=== PATIENT | female | born 1960 | race Caucasian/White ===

== ENCOUNTER 2017-11-28 10:17 | Emergency (ER) | payer BC ==
[2017-11-28] MEDS ORDERED: METHYLPREDNISOLONE 125 MG INJ ONE (11:07)
[2017-11-28] MEDS ORDERED: LEVALBUTEROL 1.25 MG/3 ML NEB ONE (11:09)
[2017-11-28 11:48] LABS: Protime INR 1.13
[2017-11-28 11:49] LABS: Absolute Lymphocytes (CBC) 1.5 K/uL (0.7-4.9); Absolute Monocytes 0.8 K/uL (0.1-1.3); Basophils % 0.9 % (0-1.3); Eosinophils % 0.3 % (0-4.4); Hematocrit 42.2 % (36.0-45.0); Lymphocytes % 10.6 % (15.3-44.8); MCH 29.8 pg (27.0-35.0); MCV 90.3 fL (80-100); MPV 8.3 fL (7.6-11.3); Monocytes % 5.5 % (3.3-12.3); RBC Red Blood Cell Count 4.67 M/uL (3.86-4.86)
[2017-11-28 11:54] LABS: Potassium 3.8 mEq/L (3.6-5.0)
[2017-11-28 12:00] LABS: Albumin 4.2 g/dL (3.2-5.5); Bilirubin Direct 0.1 mg/dL (0-0.2); Bilirubin Total 0.7 mg/dL (0.3-1.2); Magnesium 2.3 mg/dL (1.8-2.5); Protein, Total 7.9 g/dL (6.0-8.3)
--- NOTE | 2017-11-28 12:14 | RAD REPORT ---
EXAM DESCRIPTION: Christine Single View11/28/2017 11:59 am CLINICAL HISTORY: Chest pain COMPARISON: November 25, 2017 FINDINGS: Left basilar opacities are without significant change. The right lung appears clear. The heart is normal size IMPRESSION: No change in left basilar opacities probably representing pneumonia. This should be foll owed until it is clear to help exclude a post obstructive process/underlying mass
[2017-11-28] MEDS ORDERED: levoFLOXacin 750 MG TAB ONE (13:02)
[2017-11-28] MEDS ORDERED: ACETAMINOPHEN 500 MG TAB ONE (13:02)
--- NOTE | 2017-11-28 13:41 | EDPHYS ---
Physician Documentation [facility] Name: Gabriella Luna Age: 57 yrs Sex: Female : 1960 Arrival Date: 11/28/2017 Time: 10:20 Bed 20 Private MD: Dread Pineda E ED Physician Shamar Padilla HPI: 11/28 13:36 This 57 yrs old Female presents to ER via Ambulatory with complaints of jr8 Asthma Exacerbation. 13:36 The patient presents to the emergency department with wheezing, Current therapy: jr8 albuterol inhaler. Onset: The symptoms/episode began/occurred gradually, 1 week(s) ago. Modifying factors: The symptoms are alleviated by nothing, the symptoms are aggravated by nothing. Associated signs and symptoms: Pertinent positives: chest pain. Severity of symptoms: At their worst the symptoms were moderate in the emergency department the symptoms are unchanged. The patient has not experienced similar symptoms in the past. The patient has been recently seen by a physician:. Patient had X-ray done a few days ago after stating she was having some left sided chest pain. For the past couple of days has had increased shortness of breath. Went to urgent care today and was referred to ED for suspected pneumonia . Historical: - Allergies: 10:32 Sulfa (Sulfonamide Antibiotics); hj 10:32 NSAIDS; hj 13:41 Levaquin; em - Home Meds: 10:32 vitamins [Active]; Ventolin Nebulizer [Active]; hj - PMHx: 10:32 Asthma; hj - PSHx: 10:32 Cholecystectomy; Appendectomy; Hernia repair; Knee surgery; hj - Immunization history:: Adult Immunizations up to date. - Social history:: Smoking status: . ROS: 13:36 Eyes: Negative for injury, pain, redness, and discharge, ENT: Negative for injury, jr8 pain, and discharge, Neck: Negative for injury, pain, and swelling, Cardiovascular: Negative for chest pain, palpitations, and edema, Abdomen/GI: Negative for abdominal pain, nausea, vomiting, diarrhea, and constipation, Back: Negative for injury and pain, MS/Extremity: Negative for injury and deformity, Skin: Negative for injury, rash, and discoloration, Neuro: Negative for headache, weakness, numbness, tingling, and seizure. 13:36 Respiratory: Positive for cough, shortness of breath, wheezing. Exam: 13:36 Eyes: Pupils equal round and reactive to light, extra-ocular motions intact. Lids and jr8 lashes normal. Conjunctiva and sclera are non-icteric and not injected. Cornea within normal limits. Periorbital areas with no swelling, redness, or edema. ENT: Nares patent. No nasal discharge, no septal abnormalities noted. Tympanic membranes are normal and external auditory canals are clear. Oropharynx with no redness, swelling, or masses, exudates, or evidence of obstruction, uvula midline. Mucous membranes moist. Neck: Trachea midline, no thyromegaly or masses palpated, and no cervical lymphadenopathy. Supple, full range of motion without nuchal rigidity, or vertebral point tenderness. No Meningismus. Cardiovascular: Regular rate and rhythm with a normal S1 and S2. No gallops, murmurs, or rubs. Normal PMI, no JVD. No pulse deficits. Abdomen/GI: Soft, non-tender, with normal bowel sounds. No distension or tympany. No guarding or rebound. No evidence of tenderness throughout. Back: No spinal tenderness. No costovertebral tenderness. Full range of motion. Skin: Warm, dry with normal turgor. Normal color with no rashes, no lesions, and no evidence of cellulitis. MS/ Extremity: Pulses equal, no cyanosis. Neurovascular intact. Full, normal range of motion. Neuro: Awake and alert, GCS 15, oriented to person, place, time, and situation. Cranial nerves II-XII grossly intact. Motor strength 5/5 in all extremities. Sensory grossly intact. Cerebellar exam normal. Normal gait. 13:36 Respiratory: the patient does not display signs of respiratory distress, Respirations: normal, symetrical, no use of accessory muscles, no grunting, no evidence of nasal flaring, no prolonged exhalations, no pursed lip breathing, no retractions, no shallow respirations, no splinting, no tachypnea, Breath sounds: wheezing: expiratory that is mild, is heard diffusely. Vital Signs: 10:32 BP 130 / 53; Pulse 95; Resp 20; Temp 98.2(O); Pulse Ox 99% on R/A; Weight 62.6 kg; hj Height 5 ft. 6 in. (167.64 cm); Pain 7/10; 11:48 BP 130 / 48; Pulse 72; Resp 18; Pulse Ox 95% on R/A; Pain 5/10; em 13:14 BP 129 / 53; Pulse 79; Resp 18; Pulse Ox 95% on R/A; Pain 7/10; em 13:50 BP 135 / 61; Pulse 85; Resp 16; Temp 98.3(O); Pulse Ox 95% on R/A; Pain 5/10; em 10:32 Body Mass Index 22.27 (62.60 kg, 167.64 cm) hj MDM: 10:56 Patient medically screened. 8 13:36 Data reviewed: vital signs, nurses notes, lab test result(s), EKG, radiologic studies, jr8 plain films, and as a result, I will discharge patient. Data interpreted: Pulse oximetry: on room air is 95 %. Interpretation: normal. Counseling: I had a detailed discussion with the patient and/or guardian regarding: the historical points, exam findings, and any diagnostic results supporting the discharge/admit diagnosis, lab results, radiology results, the need for outpatient follow up, a family practitioner, to return to the emergency department if symptoms worsen or persist or if there are any questions or concerns that arise at home. Response to treatment: the patient's symptoms have markedly improved after treatment. 11/28 11:04 Order name: Basic Metabolic Panel; Complete Time: 12:11/28 11:04 Order name: BNP; Complete Time: 12:11/28 11:04 Order name: CBC with Diff; Complete Time: 12:11/28 11:04 Order name: LFT's; Complete Time: 12:11/28 11:04 Order name: Magnesium; Complete Time: 12:11/28 11:04 Order name: PT-INR; Complete Time: 12:11/28 11:04 Order name: Troponin (emerg Dept Use Only); Complete Time: 12:11/28 11:04 Order name: XRAY Chest (1 view); Complete Time: 12:11/28 11:04 Order name: EKG; Complete Time: 11:11/28 11:04 Order name: Cardiac monitoring; Complete Time: 12:11/28 11:04 Order name: EKG - Nurse/Tech; Complete Time: 12:13 11/28 11:04 Order name: IV Saline Lock; Complete Time: 12:11/28 11:04 Order name: Labs collected and sent; Complete Time: 12:11/28 11:04 Order name: O2 Per Protocol; Complete Time: 12:14 11/28 11:04 Order name: O2 Sat Monitoring; Complete Time: 12:14 Administered Medications: 11:20 Drug: SOLU-Medrol 125 mg Route: IVP; Site: right wrist; sg 13:29 Follow up: Response: No adverse reaction em 11:20 Drug: Xopenex 1.25 mg Route: Inhalation; em 12:13 Follow up: Response: No adverse reaction em 13:10 Drug: LevaQUIN 750 mg Route: PO; em 13:29 Follow up: Response: No adverse reaction em 13:10 Drug: Tylenol 1000 mg Route: PO; em 13:30 Follow up: Response: No adverse reaction em Disposition: 17:22 Co-signature as Attending Physician, Shamar Padilla MD I agree with the assessment and kdr plan of care. Disposition: 11/28/17 13:41 Discharged to Home. Impression: Pneumonia due to other specified bacteria. - Condition is Stable. - Discharge Instructions: Pneumonia, Adult. - Prescriptions for Albuterol Sulfate 2.5 mg /3 mL (0.083 %) Inhalation Solution for Nebulization - inhale 1 unit by NEBULIZATION route every 8 hours As needed; 1 box. Zithromax Z- Barrie 250 mg Oral Tablet - take 1 tablet by ORAL route as directed for 5 days Day 1 - take two (2) tablets one time. Day 2, 3, 4 , 5 take one (1) tablet once daily.; 6 tablet. Albuterol Sulfate 90 mcg/actuation - inhale 1-2 puff by INHALATION route every 4-6 hours; 1 Inhaler. - Medication Reconciliation Form, Thank You Letter, Antibiotic Education, Prescription Opioid Use form. - Follow up: Dread Pineda MD; When: 2 - 3 days; Reason: Recheck today's complaints, Continuance of care, Re-evaluation by your physician. - Problem is new. - Symptoms have improved. Signatures: Dispatcher [employer] EDMitch Carl RN RN sg Rittger, Kevin, MD MD [facility] Mcgovern, Mamadou, CERTIFICATION ENGINEER CERTIFICATION ENGINEER em Ricardo Moffett PA PA jr8 Matheus Silva RN RN hj Corrections: (The following items were deleted from the chart) 14:01 11:04 Urine Dipstick-Ancillary ordered. rigo phipps
--- NOTE | 2017-11-28 13:41 | ER ---
Nurse's Notes [facility] Name: Gabriella Luna Age: 57 yrs Sex: Female : 1960 Arrival Date: 11/28/2017 Time: 10:20 Bed 20 Private MD: Dread Pineda E Diagnosis: Pneumonia due to other specified bacteria Presentation: 11/28 10:30 Presenting complaint: Patient states: hx of asthma, and my back and chest is hurting, hj and im coughing, i feel like my inhaler is not working; report chills; denies fever;. Transition of care: patient was not received from another setting of care. Onset of symptoms was November 28, 2017. Initial Sepsis Screen: Does the patient meet any 2 criteria? No. Patient's initial sepsis screen is negative. Does the patient have a suspected source of infection? No. Patient's initial sepsis screen is negative. Care prior to arrival: None. 10:30 Method Of Arrival: Ambulatory hj 10:30 Acuity: ASHLEY 3 hj Triage Assessment: 10:32 General: Appears in no apparent distress. uncomfortable, Behavior is calm, cooperative, hj appropriate for age. Pain: Complains of pain in back and chest. Historical: - Allergies: 10:32 Sulfa (Sulfonamide Antibiotics); hj 10:32 NSAIDS; hj 13:41 Levaquin; em - Home Meds: 10:32 vitamins [Active]; Ventolin Nebulizer [Active]; hj - PMHx: 10:32 Asthma; hj - PSHx: 10:32 Cholecystectomy; Appendectomy; Hernia repair; Knee surgery; hj - Immunization history:: Adult Immunizations up to date. - Social history:: Smoking status: . Screenin:42 Abuse screen: Denies threats or abuse. Nutritional screening: No deficits noted. em Tuberculosis screening: No symptoms or risk factors identified. Fall Risk None identified. Assessment: 11:00 General: Appears in no apparent distress. comfortable, Behavior is calm, cooperative. em Pain: Complains of pain in chest Pain radiates to back Pain currently is 7 out of 10 on a pain scale. Neuro: Level of Consciousness is awake, alert, obeys commands, Oriented to person, place, time, situation. Cardiovascular: Capillary refill < 3 seconds Patient's skin is warm and dry. Respiratory: Reports shortness of breath at rest pain with cough since 4 days Airway is patent Respiratory effort is even, unlabored, Respiratory pattern is regular, symmetrical, Breath sounds are diminished in left posterior upper lobe and left posterior lower lobe Onset: The symptoms/episode began/occurred 4 days ago. GI: Abdomen is flat. : No signs and/or symptoms were reported regarding the genitourinary system. EENT: No signs and/or symptoms were reported regarding the EENT system. Derm: Skin is intact, Skin is pink, warm \T\ dry. Musculoskeletal: Range of motion: intact in all extremities. 11:10 Reassessment: Patient appears in no apparent distress at this time. I agree with above iw assessment by Mamadou Mcgovern LVN. 12:07 Reassessment: Patient appears in no apparent distress at this time. Patient and/or em family updated on plan of care and expected duration. Pain level reassessed. Patient is alert, oriented x 3, equal unlabored respirations, skin warm/dry/pink. 13:13 Reassessment: Patient appears in no apparent distress at this time. Patient and/or em family updated on plan of care and expected duration. Pain level reassessed. Patient is alert, oriented x 3, equal unlabored respirations, skin warm/dry/pink. reports having headache, but breathing is improved. 13:22 Reassessment: Patient appears in no apparent distress at this time. pt reports having em tendon issues behind the left knee many years ago after taking Levaquin, medication has already been administed, KECIA Silva notified, will change antibiotic at discharge. Vital Signs: 10:32 BP 130 / 53; Pulse 95; Resp 20; Temp 98.2(O); Pulse Ox 99% on R/A; Weight 62.6 kg; hj Height 5 ft. 6 in. (167.64 cm); Pain 7/10; 11:48 BP 130 / 48; Pulse 72; Resp 18; Pulse Ox 95% on R/A; Pain 5/10; em 13:14 BP 129 / 53; Pulse 79; Resp 18; Pulse Ox 95% on R/A; Pain 7/10; em 13:50 BP 135 / 61; Pulse 85; Resp 16; Temp 98.3(O); Pulse Ox 95% on R/A; Pain 5/10; em 10:32 Body Mass Index 22.27 (62.60 kg, 167.64 cm) ED Course: 10:20 Patient arrived in ED. rg4 10:20 Dread Pineda MD is Private Physician. rg4 10:31 Triage completed. hj 10:32 Arm band placed on left wrist. hj 10:48 Mamadou Mcgovern LVN is Primary Nurse. em 10:55 Ricardo Moffett PA is PHCP. jr8 10:56 Shamar Padilla MD is Attending Physician. jr8 11:42 No provider procedures requiring assistance completed. Initial lab(s) drawn, by me, em sent to lab. Inserted saline lock: 22 gauge in right forearm, using aseptic technique. Blood collected. 11:43 Patient has correct armband on for positive identification. Bed in low position. Call em light in reach. Side rails up X2. 12:00 XRAY Chest (1 view) In Process Unspecified. EDMS 12:01 EKG done, by echocardiography radiology technologist. reviewed by Ricardo MCDONNELL. tc 13:40 Dread Pineda MD is Referral Physician. jr8 13:51 IV discontinued, intact, bleeding controlled, No redness/swelling at site. Pressure em dressing applied. Administered Medications: 11:20 Drug: SOLU-Medrol 125 mg Route: IVP; Site: right wrist; sg 13:29 Follow up: Response: No adverse reaction em 11:20 Drug: Xopenex 1.25 mg Route: Inhalation; em 12:13 Follow up: Response: No adverse reaction em 13:10 Drug: LevaQUIN 750 mg Route: PO; em 13:29 Follow up: Response: No adverse reaction em 13:10 Drug: Tylenol 1000 mg Route: PO; em 13:30 Follow up: Response: No adverse reaction em Outcome: 13:41 Discharge ordered by . jr8 14:00 Discharged to home ambulatory. em 14:00 Condition: good 14:00 Discharge instructions given to patient, Instructed on discharge instructions, follow up and referral plans. medication usage, Demonstrated understanding of instructions, follow-up care, medications, Prescriptions given X 3. 14:07 Patient left the ED. em Signatures: Dispatcher [employer] EDMS Mitch Carnes RN RN sg Mamadou Mcgovern LVN LVN em Smita Jones RN RN Ricardo Moffett PA PA jr8 Nora Almeida, cloth measurer EKG [facility] Matheus Silva RN RN Lou Alexis rg4 Corrections: (The following items were deleted from the chart) 13:58 13:22 Reassessment: Patient appears in no apparent distress at this time. pt reports em having tendon issues behind the left knee many years ago after taking Levaquin, KECIA Silva notified, will change antibiotic at discharge em
[2017-11-28 14:12] VITALS: O2SAT 95
[2017-11-28 14:15] VITALS: BP 135/61; TEMP 98.3
--- NOTE | 2017-11-28 16:25 | EKG ---
Test Date: 2017-11-28 Test Time: 11:44:15 Ad Taker: KINSEY MEASUREMENT RESULTS: Intervals: Rate: 77 SC: 142 QRSD: 78 QT: 386 QTc: 436 Pana: P: 80 SC: 142 QRS: 63 T: 60 INTERPRETIVE STATEMENTS: Normal sinus rhythm Normal ECG Compared to ECG 10/24/2014 22:14:52 ST (T wave) deviation no longer present Electronically Signed On 11-28-17 16:23:32 CDT by Geo Johnson
== END 2017-11-28 14:07 | disposition home or self-care (01) ==
LOC: ER 10:17
DX: J15.8 Pneumonia due to other specified bacteria (principal); Z88.2 Allergy status to sulfonamides; Z88.6 Allergy status to analgesic agent
CPT/HCPCS: 36415; 71045; 80048; 80076; 83735; 83880; 84484; 85025; 85610; 93005; 96374; 99284; J2930

== ENCOUNTER 2022-02-26 13:16 | Emergency (ER) | payer BC ==
--- OUTSIDE RECORDS SUMMARY | 2022-02-26 13:20 | XMS REPORT | Continuity of Care Document ---
:1960 Author Organization [facility] t Address [address] [place] [address] Care Team Providers Name Role Phone System, Not In Primary Care Physician Unavailable Vaccine, Db Cbc Fam Attending Clinician Unavailable Alejandra MENDEZ Attending Clinician ALEJANDRA Attending Clinician Unavailable Becky George Attending Clinician Unavailable Physician, Primary or Family Admitting Clinician Unavailabl e Payers Payer Name Policy Type Policy Number Effective Date Expiration Date S ource Problems This patient has no known problems. Allergies, Adverse Reactions, Alerts Allergy Allergy Status Severity Reaction(s) Onset Inactive Treating Comm ents Source Name Type Date Date Clinician Sulfa DA Active U HIVES [facility] (Sulfona 01-05 00:00: [place] [facility] cefazoli DA Active U SHORTNESS OF HC A n BREATH 01-05 00:: [address] levoflox DA Active U SHORTNESS OF HC A acin BREATH 01-05 00:: [address] Sulfa DA Active U [facility] (Sulfona 01-05 mide 00:00: [place] [facility] Center cefazoli DA Active U [facility] n 01-05 00:00: [address] levoflox DA Active U [facility] acin 6-04 West 00:00: [address] SULFA Drug Active Hives Univers (SULFONA Class 3-28 ity of MIDE 00:00: [place] ANTIBIOT 00 Medical ICS) Branch Sulfa Propensi Active Hives Univers (Sulfona ty to 3-28 ity of mide adverse 00:00: [place] Antibiot reaction 00 Medica l ics) s Branch Social History Social Habit Start Date Stop Date Quantity Comments Source Exposure to Not sure [place] of SARS-CoV-2 (event) [facility] Cigarettes smoked 2016-10-29 2016-10-29 Univers ity of current (pack per 00:00:00 00:00:00 [place] ) - Reported Branch Cigarette 2016-10-29 2016-10-29 University of pack-years 00:00:00 00:00:00 [facility] Tobacco use and 2016-10-29 2016-10-29 Never used Universit y of exposure 00:00:00 00:00:00 [facility] Alcohol intake 2016-10-29 2016-10-29 Current drinker Unive rsity of 00:00:00 00:00:00 of alcohol [facility] (finding) Branch History of tobacco 1986-10-29 Cigarette Smoker University of use 00:00:00 [facility] Sex Assigned At [birth year] Universit y of 00:00:00 00:00:00 [facility] Smoking Status Start Date Stop Date Source Former smoker 2016-10-29 00:00:00 2016-10-29 00:00:00 Universi ty of [facility] Medications Ordered Filled Start Stop Current Ordering Indication Dosage Frequency Signature Comments Components Source Medication Medication Date Date Medication? Clinician (SIG) Name Name Diphenhydra Yes Take by Un amadeo mine-Acetam 10-29 mouth. ity of inophen 08:34: [place] (PERCOGESIC 27 Medical ) 12.5-325 Branch mg Tab codeine-gua Yes [id number] 5mL Take 5 mL Univers ifenesin 10-29 by mouth ity of 10-100 mg/5 00:00: every 6 Lui as mL solution 00 (six) Medical hours as Branch needed for Cough. albuterol-i Yes [id number] 1{puff} Inhale 1 Univers pratropium 3-28 Puff 4 ity of 20-100 00:00: (four) [place] mcg/actuati 00 times Medical on inhaler daily. Branch Immunizations Ordered Filled Immunization Date Status Comments Sour e Immunization Name Name SARS-COV-2 COVID-19 2021-07-23 Completed Unive rsity of MODERNA BOOSTER 00:00:00 [place] Med ical VACCINE Branch SARS-COV-2 COVID-19 2020-11-06 Completed Unive rsity of MODERNA VACCINE 00:00:00 [place] Med ical Branch SARS-COV-2 COVID-19 2020-10-11 Completed Unive rsity of MODERNA VACCINE 00:00:00 [place] [facility] Procedures Procedure Date / Time Performed Performing Clinician Ray bronson SARS-COV-2 COVID-19 2021-07-23 16:09:31 Doctor Unassigned, No Un iversity of [place] VACCINE Name Medical Branch BOOSTER,0.25ML,IM (MODERNA) Encounters Start End Encounter Admission Attending Care Care Encounter Source Date/Time Date/Time Type Type Clinicians Facility Department ID 2021-07-23 2021-07-23 Imm/Inj Vaccine, Ang Db Cbc Fam [facility] 1. [id number] Univers 10:20:00 10:30:00 Visit Dahlia Be[facility] [id number] suraj [facility] [id number] Lui as JAHAIRA?BLEA [phone] Oh yakov [address] MEDICAL OFFICE BUILDING 2021-07-23 2021-07-23 Outpatient R [facility] [id number] Univers 10:20:00 10:20:00 [id number] ity [facility] 2021-07-23 2021-07-23 Outpatient R ALEJANDRA [facility] [id number] Univers 10:20:00 10:20:00 DAHLIA ruelas [facility] 2021-01-06 2021-01-06 Outpatient JOY Weiss SURG [id number] [facility] 03:35:00 03:35:00 Sali [id number] [facility] 2020-09-30 2020-09-30 Outpatient R [facility] [id number] Univers 15:40:00 15:40:00 [id number] [facility] Results Test Description Test Time Test Comments Results Result Comments Source CBC W/AUTO DIFF 2021-01-06 15:31:00 Test Item Value Reference Range Interpretation Comme nts WHITE BLOOD CELL (test code = WBC) 6.0 K/MM3 3.8-9.8 N RED BLOOD CELL (test code = RBC) 4.49 M/MM3 3.58-4.97 N HEMOGLOBIN (test code = HGB) 13.5 G/DL 11.2-14.9 N HEMATOCRIT (test code = HCT) 41.3 % 33.2-43.5 N MEAN CELL VOLUME (test code = MCV) 92 fL 80.7-99.1 N MEAN CELL HGB (test code = MCH) 30.1 pg 27.0-34.1 N MEAN CELL HGB CONCETRATION (test code = MCHC) 32.7 % 32.2-35. 7 N RED CELL DISTRIBUTION WIDTH (test code = RDW) 12.5 % 12.1-15. 2 N PLATELET COUNT (test code = PLT) 89 K/MM3 129-368 L MEAN PLATELET VOLUME (test code = MPV) 11.1 fl 7.4-10.4 H NEUTROPHIL % (test code = NT%) 65.4 % 43-75 N IMMATURE GRANULOCYTE % (test code = IG%) 0.3 % 0.0-2.0 N LYMPHOCYTE % (test code = LY%) 27.0 % 14-44 N MONOCYTE % (test code = MO%) 5.8 % 4-13 N EOSINOPHIL % (test code = EO%) 1.0 % 0-6 N BASOPHIL % (test code = BA%) 0.5 % 0-2 N NUCLEATED RBC % (test code = NRBC%) 1.2 % 0-1.0 H NEUTROPHIL # (test code = NT#) 3.93 K/mm3 2.0-7.6 N IMMATURE GRANULOCYTE # (test code = IG#) 0.02 x10 3/uL 0-0.03 N LYMPHOCYTE # (test code = LY#) 1.62 K/mm3 1.0-3.8 N MONOCYTE # (test code = MO#) 0.35 K/mm3 0.1-0.8 N EOSINOPHIL # (test code = EO#) 0.06 K/mm3 0.0-0.2 N BASOPHIL # (test code = BA#) 0.03 K/mm3 0.0-0.2 N NUCLEATED RBC # (test code = NRBC#) 0.07 K/mm3 0.0-0.1 N DIFFERENTIAL [id number] 15:31:00 Test Item Value Reference Range Interpretation Comments RBC MORPHOLOGY REQUIRED (test code NORMAL = RBCM) POLYCHROMASIA (test code = POLC) FEW NONE PLATELET ESTIMATE (test code = DECREASED ADEQUATE PLTEST) PLATELET MORPHOLOGY (test code = NORMAL NORMAL PLTMORPH) BASIC METABOLIC [id number] 07:27:00 Test Item Value Reference Range Interpretation Comments SODIUM (test code = 140 MMOL/L 137-145 N NA) POTASSIUM (test code = 3.8 MMOL/L 3.5-5.1 N K) CHLORIDE (test code = 107 MMOL/L 98-107 N CL) CARBON DIOXIDE (test 23 MMOL/L 22-30 N code = CO2) GLUCOSE (test code = 101 MG/DL 74-106 N GLU) BLOOD UREA NITROGEN 18 MG/DL 7-17 H (test code = BUN) GLOMERULAR FILTRATION > 60 Report ing units: RATE (test code = GFR) ml/mi n/1.73 m2 (Modified MDRD Formula)Referen ce Range: > or = 6 0 ml/min/1.73 m2 CREATININE (test code 0.70 MG/DL 0.52-1.04 N = CREAT) CALCIUM (test code = 9.4 MG/DL 8.4-10.2 N CA) LIPID PROFILE (CORONARY RISK)2021-01-06 07:27:00 Test Item Value Reference Range Interpretation Comments TRIGLYCERIDES (test 69 MG/DL TRIGLYCE RIDES code = TRIG) REFERENCE RANGE:Normal: < 150 mg/dLBorderline High: 150-199 mg/dLHi gh: 200-499 mg/dLVe ry High: >=500 mg/ dL CHOLESTEROL (test code 193 MG/DL <200 = CHOL) HDL CHOLESTEROL (test 74 MG/DL 40-59 H code = HDL) LIPOPROTEIN LDL (test 93 MG/DL 0-99 N code = LDL) OPTIMAL........ .<100 mg/dLNEAR OPTIMAL/ABOVE OPTIMAL........ .100-12 9 mg/dL BORDERLINE HIGH.........13 0-159 mg/dL HIGH.........16 0-189 mg/dL VERY HIGH...... ...>/= 190 mg/dL [id number] 07:27:00 Test Item Value Reference Range Interpretation Comments MAGNESIUM (test code = MAG) 2.5 MG/DL 1.6-2.3 H BASIC METABOLIC [id number] 07:16:00 Test Item Value Reference Range Interpretation Comments SODIUM (test code = 140 MMOL/L 137-145 N NA) POTASSIUM (test code = 3.8 MMOL/L 3.5-5.1 N K) CHLORIDE (test code = 107 MMOL/L 98-107 N CL) CARBON DIOXIDE (test 23 MMOL/L 22-30 N code = CO2) GLUCOSE (test code = 101 MG/DL 74-106 N GLU) BLOOD UREA NITROGEN 18 MG/DL 7-17 H (test code = BUN) GLOMERULAR FILTRATION > 60 Report ing units: RATE (test code = GFR) ml/mi n/1.73 m2 (Modified MDRD Formula)Referen ce Range: > or = 6 0 ml/min/1.73 m2 CREATININE (test code 0.70 MG/DL 0.52-1.04 N = CREAT) CALCIUM (test code = 9.4 MG/DL 8.4-10.2 N CA) LIPID PROFILE (CORONARY RISK)2021-01-06 07:16:00 Test Item Value Reference Range Interpretation Comments TRIGLYCERIDES (test 69 MG/DL TRIGLYCE RIDES code = TRIG) REFERENCE RANGE:Normal: < 150 mg/dLBorderline High: 150-199 mg/dLHi gh: 200-499 mg/dLVe ry High: >=500 mg/ dL CHOLESTEROL (test code 193 MG/DL <200 = CHOL) HDL CHOLESTEROL (test 74 MG/DL 40-59 H code = HDL) LIPOPROTEIN LDL (test MG/DL 0-99 code = LDL) [id number] 07:16:00 Test Item Value Reference Range Interpretation Comments MAGNESIUM (test code = MAG) 2.5 MG/DL 1.6-2.3 H CBC W/AUTO [id number] 06:57:00 Test Item Value Reference Range Interpretation Comments WHITE BLOOD CELL (test code = 6.0 K/MM3 3.8-9.8 N WBC) RED BLOOD CELL (test code = 4.49 M/MM3 3.58-4.97 N RBC) HEMOGLOBIN (test code = HGB) 13.5 G/DL 11.2-14.9 N HEMATOCRIT (test code = HCT) 41.3 % 33.2-43.5 N MEAN CELL VOLUME (test code = 92 fL 80.7-99.1 N MCV) MEAN CELL HGB (test code = MCH) 30.1 pg 27.0-34.1 N MEAN CELL HGB CONCETRATION 32.7 % 32.2-35.7 N (test code = MCHC) RED CELL DISTRIBUTION WIDTH 12.5 % 12.1-15.2 N (test code = RDW) PLATELET COUNT (test code = 89 K/MM3 129-368 L PLT) MEAN PLATELET VOLUME (test code 11.1 fl 7.4-10.4 H = MPV) NEUTROPHIL % (test code = NT%) 65.4 % 43-75 N IMMATURE GRANULOCYTE % (test 0.3 % 0.0-2.0 N code = IG%) LYMPHOCYTE % (test code = LY%) 27.0 % 14-44 N MONOCYTE % (test code = MO%) 5.8 % 4-13 N EOSINOPHIL % (test code = EO%) 1.0 % 0-6 N BASOPHIL % (test code = BA%) 0.5 % 0-2 N NUCLEATED RBC % (test code = 1.2 % 0-1.0 H NRBC%) NEUTROPHIL # (test code = NT#) 3.93 K/mm3 2.0-7.6 N IMMATURE GRANULOCYTE # (test 0.02 x10 3/uL 0-0.03 N code = IG#) LYMPHOCYTE # (test code = LY#) 1.62 K/mm3 1.0-3.8 N MONOCYTE # (test code = MO#) 0.35 K/mm3 0.1-0.8 N EOSINOPHIL # (test code = EO#) 0.06 K/mm3 0.0-0.2 N BASOPHIL # (test code = BA#) 0.03 K/mm3 0.0-0.2 N NUCLEATED RBC # (test code = 0.07 K/mm3 0.0-0.1 N NRBC#) DIFFERENTIAL [id number] 06:57:00 Test Item Value Reference Range Interpretation Comments RBC MORPHOLOGY REQUIRED (test code = RBCM) PLATELET ESTIMATE (test code = PLTEST) ADEQUATE PLATELET MORPHOLOGY (test code = NORMAL PLTMORPH) CBC W/AUTO [id number] 06:57:00 Test Item Value Reference Range Interpretation Comments WHITE BLOOD CELL (test code = 6.0 K/MM3 3.8-9.8 N WBC) RED BLOOD CELL (test code = 4.49 M/MM3 3.58-4.97 N RBC) HEMOGLOBIN (test code = HGB) 13.5 G/DL 11.2-14.9 N HEMATOCRIT (test code = HCT) 41.3 % 33.2-43.5 N MEAN CELL VOLUME (test code = 92 fL 80.7-99.1 N MCV) MEAN CELL HGB (test code = MCH) 30.1 pg 27.0-34.1 N MEAN CELL HGB CONCETRATION 32.7 % 32.2-35.7 N (test code = MCHC) RED CELL DISTRIBUTION WIDTH 12.5 % 12.1-15.2 N (test code = RDW) PLATELET COUNT (test code = 89 K/MM3 129-368 L PLT) MEAN PLATELET VOLUME (test code 11.1 fl 7.4-10.4 H = MPV) NEUTROPHIL % (test code = NT%) 65.4 % 43-75 N IMMATURE GRANULOCYTE % (test 0.3 % 0.0-2.0 N code = IG%) LYMPHOCYTE % (test code = LY%) 27.0 % 14-44 N MONOCYTE % (test code = MO%) 5.8 % 4-13 N EOSINOPHIL % (test code = EO%) 1.0 % 0-6 N BASOPHIL % (test code = BA%) 0.5 % 0-2 N NUCLEATED RBC % (test code = 1.2 % 0-1.0 H NRBC%) NEUTROPHIL # (test code = NT#) 3.93 K/mm3 2.0-7.6 N IMMATURE GRANULOCYTE # (test 0.02 x10 3/uL 0-0.03 N code = IG#) LYMPHOCYTE # (test code = LY#) 1.62 K/mm3 1.0-3.8 N MONOCYTE # (test code = MO#) 0.35 K/mm3 0.1-0.8 N EOSINOPHIL # (test code = EO#) 0.06 K/mm3 0.0-0.2 N BASOPHIL # (test code = BA#) 0.03 K/mm3 0.0-0.2 N NUCLEATED RBC # (test code = 0.07 K/mm3 0.0-0.1 N NRBC#) DIFFERENTIAL [id number] 06:57:00 Test Item Value Reference Range Interpretation Comments RBC MORPHOLOGY REQUIRED (test code = RBCM) PLATELET ESTIMATE (test code = PLTEST) ADEQUATE PLATELET MORPHOLOGY (test code = NORMAL PLTMORPH) COVID 19 Asymptomatic IH [id number] 05:37:00 Test Item Value Reference Range Interpretation Comments COVID 19 NEGATIVE Negative "Negative resul ts from Asymptomatic IH AG patients with symptom (test code = onset beyondfiv e days, COVNONPUIAG) should be fede rolanda as presumptive, andconfirmation with a molecular assay , if necessary forpa tient management may be performed. Nega tive results do notr ule out COVID-19 and sh ould not be used as the sole basisfor treatm ent or patient managem ent decisions, includinginfect ion control decisio ns. Negative result s should beconsidered in the context of a pa tients recent exposure s,history, and the presenc e of clinical signs and symptomsconsist ent with COVID-19.This t est detects both vi able andnon-viable S ARS-CoV and SARS CoV-2. Test performance dep endson the amount of virus (antigen) in the sample." Spec Comments: PLZ DO KEVIN PT HAVING PROCEDURE THIS AM
[2022-02-26 14:30] LABS: Absolute Lymphocytes (CBC) 1.4 K/uL (0.7-4.9); Lymphocytes % 19.1 % (15.3-44.8); MCV 96.4 fL (80-100); MPV 7.3 fL (7.6-11.3); RBC Red Blood Cell Count 4.46 M/uL (3.86-4.86)
--- NOTE | 2022-02-26 14:36 | RAD REPORT ---
EXAM DESCRIPTION: RAD - Chest Single View - 02/26/2022 2:06 pm CLINICAL HISTORY: Chest pain COMPARISON: Two view chest 12/01/2020 TECHNIQUE: AP portable chest image was obtained 02/26/2022 2:06 pm . FINDINGS: Lungs are clear. Heart and vasculature are normal. No measurable pleural effusion and no p neumothorax. No acute bony abnormality seen. No acute aortic findings suspected. IMPRESSION: No acute cardiopulmonary process.
[2022-02-26 15:27] LABS: Protime INR 0.99
[2022-02-26 15:54] LABS: Albumin 3.6 g/dL (3.4-5.0); Bilirubin Direct 0.2 mg/dL (0-0.2); Bilirubin Total 0.6 mg/dL (0.2-1.0); Magnesium 2.2 mg/dL (1.8-2.4); Potassium 4.2 mmol/L (3.5-5.1); Protein, Total 6.6 g/dL (6.4-8.2); Thyroid Stimulating Hormone 1.33 uIU/mL (0.360-3.740); Troponin High Sensitivity 5.9 pg/mL (<58.9)
[2022-02-26] MEDS ORDERED: ALBUTEROL 2.5 MG/3 ML NEB SOL ONE (15:55)
[2022-02-26] MEDS ORDERED: IPRATROPIUM BROM 0.5MG/2.5ML ONE (15:56)
[2022-02-26] MEDS ORDERED: NA CHLORIDE 0.9% 1,000 ML ONE (17:12)
--- NOTE | 2022-02-26 17:37 | EDPHYS ---
Physician Documentation [facility] Name: Gabriella Luna Age: 61 yrs Sex: Female : 1960 Arrival Date: 02/26/2022 Time: 13:20 Bed 11 Private MD: ED Physician Jesse Soto HPI: 02/26 13:56 This 61 yrs old Female presents to ER via Wheelchair with complaints of fatigue, Nausea.pm1 13:56 61-year-old female presents to the ER with complaints of fatigue, nausea, shortness of pm1 breath onset since COVID 2 years ago. Patient reports symptoms worse the past 2 days. Primary complaint is fatigue and malaise. Patient reports feeling exhausted and then sleeping for almost the whole day. 13:56 The patient's shortness of breath is aggravated by exertion, light activity, is pm1 alleviated by Sleeping. Associated signs and symptoms: Pertinent positives: fever, Pertinent negatives: chest pain, non-productive cough, productive cough, fever. Severity of symptoms: in the emergency department the symptoms are worse. The patient has experienced similar episodes in the past, chronically. The patient has not recently seen a physician, Patient with CT chest for same complaints 3 months ago from PCP. Patient never followed up but was informed that her CT was abnormal. 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 Historical: - Allergies: 13:52 Levaquin; hb 13:52 NSAIDS; hb 13:52 Sulfa (Sulfonamide Antibiotics); hb - Home Meds: 13:52 Ventolin Nebulizer [Active]; vitamins [Active]; hb - PMHx: 13:52 Asthma; hb - Immunization history:: Adult Immunizations up to date. - Social history:: Smoking status: Patient/guardian denies using tobacco. ROS: 13:56 Eyes: Negative for injury, pain, redness, and discharge, ENT: Negative for injury, pm1 pain, and discharge, Cardiovascular: Negative for chest pain, palpitations, and edema. 13:56 Abdomen/GI: Negative for abdominal pain, nausea, vomiting, diarrhea, and constipation, Back: Negative for injury and pain, MS/Extremity: Negative for injury and deformity, Skin: Negative for injury, rash, and discoloration, Neuro: Negative for headache, weakness, numbness, tingling, and seizure. 13:56 Constitutional: Positive for fatigue, malaise, poor PO intake, Negative for body aches, chills. 13:56 Respiratory: Positive for shortness of breath, Negative for cough. 13:56 All other systems are negative. Exam: 13:56 Constitutional: This is a well developed, well nourished patient who is awake, alert, pm1 and in no acute distress. Head/Face: Normocephalic, atraumatic. 13:56 Back: No spinal tenderness. No costovertebral tenderness. Full range of motion. Skin: Warm, dry with normal turgor. Normal color with no rashes, no lesions, and no evidence of cellulitis. MS/ Extremity: Pulses equal, no cyanosis. Neurovascular intact. Full, normal range of motion. 13:56 Eyes: Exam is negative for acute changes, Extraocular movements: no acute changes, Conjunctiva: no acute changes. 13:56 ENT: Exam is negative for acute changes, Mouth: no acute changes, Lips: normal, moist, Oral mucosa: normal, pink and intact, moist. 13:56 Cardiovascular: Exam negative for acute changes, Rate: normal, Rhythm: regular, Pulses: no pulse deficits are appreciated. 13:56 Respiratory: Exam negative for acute changes, respiratory distress, shortness of breath, Breath sounds: are clear throughout. 13:56 Abdomen/GI: Exam negative for acute changes, Inspection: abdomen appears normal, Palpation: abdomen is soft and non-tender. 13:56 Neuro: Exam negative for acute changes, Orientation: is normal, Mentation: is normal, Motor: is normal, moves all fours. 14:22 ECG was reviewed by the Attending Physician. pm1 Vital Signs: 13:50 BP 130 / 66; Pulse 66; Resp 20; Temp 97.5; Pulse Ox 100% on R/A; Pain 4/10; hb 14:17 BP 130 / 52; Pulse 55; Resp 18; Pulse Ox 100% on R/A; ld1 15:53 BP 136 / 60; Pulse 58; Resp 18; Pulse Ox 100% on R/A; ld1 17:11 BP 129 / 66; Pulse 59; Resp 18; Pulse Ox 100% on R/A; ld1 MDM: 14:05 Patient medically screened. pm1 14:39 ED course: CT from primary care provider reviewed and no indication masses as reported pm1 by patient. Will order checks x-ray and determine based on results of CT required for further evaluation. 15:55 Data reviewed: vital signs. Data interpreted: Pulse oximetry: on room air is 100 %. pm1 Interpretation: normal. 17:04 Counseling: I had a detailed discussion with the patient and/or guardian regarding: the pm1 historical points, exam findings, and any diagnostic results supporting the discharge/admit diagnosis, lab results, radiology results, patient was concerned that possibly her issue is dehydration and requested IV fluids since she has had decreased PO intake for the last 2-3 days. Will give patient IV fluids 1L. 02/26 13:55 Order name: Basic Metabolic Panel; Complete Time: 15:55 pm1 02/26 13:55 Order name: CBC with Diff; Complete Time: 14:39 pm1 02/26 13:55 Order name: LFT's; Complete Time: 15:55 pm1 02/26 13:55 Order name: Magnesium; Complete Time: 15:55 pm1 02/26 13:55 Order name: NT PRO-BNP; Complete Time: 15:55 pm1 02/26 13:55 Order name: PT-INR; Complete Time: 15:35 pm1 02/26 13:55 Order name: Troponin HS; Complete Time: 15:55 pm1 02/26 13:56 Order name: XRAY Chest (1 view); Complete Time: 14:39 pm02/26 13:56 Order name: Flu; Complete Time: 15:20 pm02/26 13:57 Order name: COVID-19 SARS RT PCR (Document "Date of Onset" if Symptomatic); Complete pm1 Time: 15:20 02/26 14:17 Order name: Thyroid Stimulating Hormone; Complete Time: 15:55 EDMS 02/26 13:56 Order name: EKG; Complete Time: 13:56 pm02/26 13:56 Order name: Cardiac monitoring; Complete Time: 14:18 pm02/26 13:56 Order name: EKG - Nurse/Tech; Complete Time: 14:23 pm02/26 13:56 Order name: IV Saline Lock; Complete Time: 14:24 pm02/26 13:56 Order name: Labs collected and sent; Complete Time: 14:24 pm02/26 13:56 Order name: O2 Per Protocol; Complete Time: 14:13 pm1 02/26 13:56 Order name: O2 Sat Monitoring; Complete Time: 14:13 pm1 02/26 14:35 Order name: Labs - recollect needed: recollect 2 green and 1 blue; Complete Time: 15:21 bd EC: Rate is 54 beats/min. Rhythm is regular, Sinus bradycardia with No ectopy. QT interval pm1 is normal. No Q waves. T waves are Normal. No ST changes noted. Clinical impression: Sinus bradycardia. Administered Medications: 15:53 Drug: Albuterol 2.5 mg Route: Inhalation; ld1 15:53 Drug: AtroVENT (ipratropium) Aerosol 0.5 mg Route: Inhalation; ld1 17:11 Drug: NS 0.9% 1000 ml Route: IV; Rate: 1000 ml; Site: left antecubital; ld1 Disposition Summary: 02/26/22 17:36 Discharge Ordered Location: Home pm1 Problem: new pm1 Symptoms: have improved pm1 Condition: Stable pm1 Diagnosis - Other malaise and fatigue pm1 Followup: pm1 - With: Emergency Department - When: As needed - Reason: Worsening of condition Followup: pm1 - With: Private Physician - When: 2 - 3 days - Reason: Recheck today's complaints, Continuance of care, Re-evaluation by your physician Discharge Instructions: - Discharge Summary Sheet pm1 - Fatigue pm1 Forms: - Medication Reconciliation Form pm1 - Thank You Letter pm1 - Antibiotic Education pm1 - Prescription Opioid Use pm1 Signatures: Dispatcher [employer] EDMS Hailey Mcfarland Patrick, HOOKER OFF HOOKER OFF pm1 Mackenzie Abrams, PRICILLA RN Danielle Merrill RN RN ld1 Corrections: (The following items were deleted from the chart) 14:17 13:58 THYROID STIMULAT HORMONE+C.LAB.BRZ ordered. EDMS EDMS
--- NOTE | 2022-02-26 17:37 | ER ---
Nurse's Notes [facility] [place] Name: Gabriella Luna Age: 61 yrs Sex: Female : 1960 Arrival Date: 02/26/2022 Time: 13:20 Bed 11 Private MD: Diagnosis: Other malaise and fatigue Presentation: 02/26 13:50 Chief complaint: Fatigue, malaise, nausea, and SOB x years, worse over last 2 days. hb Coronavirus screen: Client presents with at least one sign or symptom that may indicate coronavirus-19. Standard/surgical mask placed on the client. Ebola Screen: No symptoms or risks identified at this time. Initial Sepsis Screen: Does the patient meet any 2 criteria? No. Patient's initial sepsis screen is negative. Does the patient have a suspected source of infection? No. Patient's initial sepsis screen is negative. Risk Assessment: Do you want to hurt yourself or someone else? Patient reports no desire to harm self or others. Onset of symptoms was February 2022. 13:50 Method Of Arrival: Wheelchair hb 13:50 Acuity: ASHLEY 3 hb Triage Assessment: 13:52 General: Appears in no apparent distress. Behavior is calm, cooperative. Neuro: Level hb of Consciousness is awake, alert, obeys commands, Oriented to person, place, time, situation. Cardiovascular: Patient's skin is warm and dry. Respiratory: Respiratory effort is even, unlabored. 18:22 GI: Reports. ld1 Historical: - Allergies: 13:52 Levaquin; hb 13:52 NSAIDS; hb 13:52 Sulfa (Sulfonamide Antibiotics); hb - Home Meds: 13:52 Ventolin Nebulizer [Active]; vitamins [Active]; hb - PMHx: 13:52 Asthma; hb - Immunization history:: Adult Immunizations up to date. - Social history:: Smoking status: Patient/guardian denies using tobacco. Screenin:12 Abuse screen: Denies threats or abuse. Denies injuries from another. Nutritional ld1 screening: No deficits noted. Tuberculosis screening: No symptoms or risk factors identified. Fall Risk None identified. Assessment: 14:12 General: Appears in no apparent distress. comfortable, Behavior is calm, cooperative, ld1 appropriate for age. Pain: Denies pain. Neuro: Level of Consciousness is awake, alert, obeys commands, Oriented to person, place, time, situation. Cardiovascular: Capillary refill < 3 seconds Patient's skin is warm and dry. Respiratory: Airway is patent Respiratory effort is even, unlabored. GI: Abdomen is flat, non-distended. : No signs and/or symptoms were reported regarding the genitourinary system. EENT: No signs and/or symptoms were reported regarding the EENT system. Derm: No signs and/or symptoms reported regarding the dermatologic system. Musculoskeletal: No signs and/or symptoms reported regarding the musculoskeletal system. Vital Signs: 13:50 BP 130 / 66; Pulse 66; Resp 20; Temp 97.5; Pulse Ox 100% on R/A; Pain 4/10; hb 14:17 BP 130 / 52; Pulse 55; Resp 18; Pulse Ox 100% on R/A; ld1 15:53 BP 136 / 60; Pulse 58; Resp 18; Pulse Ox 100% on R/A; ld1 17:11 BP 129 / 66; Pulse 59; Resp 18; Pulse Ox 100% on R/A; ld1 ED Course: 13:20 Patient arrived in ED. mr 13:52 Triage completed. hb 13:52 Arm band placed on. hb 13:55 Nirmal Quesada, REGLA is PHCP. pm1 13:55 Jesse Soto MD is Attending Physician. pm1 14:07 XRAY Chest (1 view) In Process Unspecified. EDMS 14:12 Danielle Merrill, RN is Primary Nurse. ld1 14:12 Patient has correct armband on for positive identification. Placed in gown. Bed in low ld1 position. Call light in reach. Side rails up X2. Pulse ox on. NIBP on. Door closed. Noise minimized. Warm blanket given. 14:12 No provider procedures requiring assistance completed. ld1 14:14 COVID-19 SARS RT PCR (Document "Date of Onset" if Symptomatic) Sent. mb7 14:14 Flu Sent. mb7 14:22 EKG done, by ED staff, reviewed by Nirmal Quesada NP. mb7 14:23 Inserted saline lock: 22 gauge in left antecubital area, using aseptic technique. Blood zm collected. 14:23 Basic Metabolic Panel Sent. zm 14:24 CBC with Diff Sent. zm 14:24 LFT's Sent. zm 14:24 Magnesium Sent. zm 14:24 NT PRO-BNP Sent. zm 14:24 PT-INR Sent. zm 14:24 Troponin HS Sent. zm 14:24 Thyroid Stimulating Hormone Sent. zm 18:22 IV discontinued, intact, bleeding controlled, No redness/swelling at site. ld1 Administered Medications: 15:53 Drug: Albuterol 2.5 mg Route: Inhalation; ld1 15:53 Drug: AtroVENT (ipratropium) Aerosol 0.5 mg Route: Inhalation; ld1 17:11 Drug: NS 0.9% 1000 ml Route: IV; Rate: 1000 ml; Site: left antecubital; ld1 Medication: 14:12 VIS not applicable for this client. ld1 Outcome: 17:36 Discharge ordered by MD. pm1 18:22 Discharged to home ambulatory, with family. ld1 18:22 Condition: stable 18:22 Discharge instructions given to patient, family, Instructed on discharge instructions, follow up and referral plans. Demonstrated understanding of instructions, follow-up care. 18:22 Patient left the ED. ld1 Signatures: Dispatcher [employer] Lorna Brown Patrick, [employer] pm1 Mackenzie Abrams RN RN Danielle Merrill RN RN ld1 Lorna Foster mb7 Indira Story Corrections: (The following items were deleted from the chart) 13:53 13:50 Chief complaint: Fatigue, malaise, nausea, and SOB x 2 weeks. hb hb
[2022-02-26 18:32] VITALS: TEMP 97.5; O2SAT 100
[2022-02-26 18:37] VITALS: BP 129/66
--- NOTE | 2022-02-27 06:40 | EKG ---
Test Date: 2022-02-26 Test Time: 14:22:35 [employer]: MB MEASUREMENT RESULTS: Intervals: Rate: 54 OK: 154 QRSD: 84 QT: 446 QTc: 422 [place]: P: 84 OK: 154 QRS: 81 T: 67 INTERPRETIVE STATEMENTS: Sinus bradycardia Otherwise normal ECG Compared to ECG 11/28/2017 11:44:15 Sinus rhythm no longer present Electronically Signed On 02-27-22 06:38:38 CDT by Geo Johnson
== END 2022-02-26 18:22 | disposition home or self-care (01) ==
LOC: ER 13:16
DX: R53.83 Other fatigue (principal); R53.81 Other malaise; Z20.822 Contact with and (suspected) exposure to COVID-19; Z88.1 Allergy status to other antibiotic agents; Z88.2 Allergy status to sulfonamides; Z88.6 Allergy status to analgesic agent
CPT/HCPCS: 93005; 85025; 80048; 36415; 83735; 85610; 80076; 84443; 84484; 83880; 87804 ×2; 71045; 99284; U0003; J7030